=== PATIENT | male | born 1995 | race African-American/Black ===

== ENCOUNTER 2020-07-05 10:00 | Emergency (ER) | payer OTHER ==
[~2020-07-05] VITALS: Ht 175.3 cm; Wt 87.2 kg
[2020-07-05 10:11] VITALS: BP 130/49
[2020-07-05] MEDS ORDERED: TETRACAINE 0.5% OPHTH SOLUTION 4ML BOTTLE. OS ONE (10:15)
--- NOTE | 2020-07-05 10:45 | PHYS DOC ---
Past History Past Medical History: No Pertinent History Additional Past Surgical Histo: Chalazion removal to left eye Smoking: Non-smoker Alcohol Use: None Drug Use: None General Adult EDM: Chief Complaint: EYE PROBLEMS HPI: HPI: 24-year-old male presents with report of worsening vision to his left eye. Camilla ent reports initially was seen by Dr. Zazueta (ophthalmology) on 06/20/2020 for removal of left upper eyelid chalazion. Patient reports they removed the to lazy and and some "scar tissue ". And injected some steroid. Patient reports he was started on oral antibiotic. Patient reports he has noticed some slight blurry vision. Reports he has started to use a mask that heats up in the microwave that he places to "draw any excess oils out "to prevent a further chalazion. Patient reports he has been waking up with some blurry vision which then resolves quickly. Patient reports over the last 2 days his vision has not been returning. Reports some improvement later in the afternoon but not returning to his normal vision despite use of his glasses. Denies contact use. Denies trauma. Reports some sensation of "pressure behind his eye". Denies headache. Review of Systems: Review of Systems: Constitutional: Denies fever or chills Eyes: Denies redness; reports vision loss in left eye and mild sensation of pressure behind his eye HENT: Denies nasal congestion or sore throat Respiratory: Denies cough or shortness of breath Cardiovascular: Denies chest pain or palpitations GI: Denies abdominal pain, nausea, or vomiting : Denies dysuria or hematuria Musculoskeletal: Denies back pain or joint pain Integument: Denies rash or skin lesions Neurologic: Denies headache, focal weakness or sensory changes Complete systems were reviewed and found to be within normal limits, except as documented in this note. Current Medications: Current Meds: Current Medications Medications (Trade) Dose Ordered Sig/Ashish Start Time Stop Time Status Last Admin Dose Admin Tetracaine HCl (Tetracaine) 2 drop 1X ONCE 07/05/20 10:15 07/05/20 10:20 DC Allergies: Allergies: Allergies Coded Allergies Type Severity Reaction Last Updated Verified No Known Drug Allergies 07/05/20 No Physical Exam: PE: Constitutional: Well developed, well nourished, no acute distress, non-toxic appearance HENT: Normocephalic, atraumatic Eyes: PERRL, EOMI, conjunctiva normal, no discharge, small chalazion to left upper eyelid, red reflex visiable, left IOP 24, 24, 29, visual acuities: R 20/40 L 20/200 Neck: Normal range of motion, no tenderness, supple Lungs & Thorax: No respiratory distress, equal chest rise and fall Skin: Warm, dry, no erythema, no rash Extremities: ROM intact, moves all extremities without difficulty Neurologic: Alert and oriented X 3, no focal deficits noted Psychologic: Affect normal, judgment normal Current Patient Data: Vital Signs: Vital Signs Date Time Temp Pulse Resp B/P (MAP) Pulse Ox O2 Delivery O2 Flow Rate FiO2 07/05/20 10:11 65 18 130/49 (76) 97 EKG: EKG: [] Radiology/Procedures: Radiology/Procedures: [] Heart Score: C/O Chest Pain: N/A Course & Med Decision Making: Course & Med Decision Making Patient presents with acute visual changes. Visual acuities noted patient 20/40 on right and 20/200 on left without use of his glasses. Intraocular pressures 24, 24, 29 to left eye. Pupil is equal and reactive. Extraocular movements are intact. Patient does have history of recent chalazion surgery with ophthalmology. Discussed case with Dr. Zazueta (ophthalmology) who will be able to see patient at 1300 today in the office. Patient stable for discharge with close outpatient follow-up with ophthalmology at 1300 today. Discussed findings and plan with patient, who acknowledges understanding and agreement. Nicole Disclaimer: Nicole Disclaimer: This electronic medical record was generated, in whole or in part, using a voice recognition dictation system. Departure Departure: Impression: Primary Impression: Change in vision Disposition: 01 HOME / SELF CARE / HOMELESS Condition: STABLE Referrals: MARIO ALBERTO MACIAS DO (PCP) PAULO ZAZUETA DO Patient Instructions: Eye - Blurred Vision Additional Instructions: Present to be seen by Dr. Zazueta (ophthalmology) at 1300 to be further evaluated and treated for your vision change. ANIYA MAGALLANES DO July 05, 2020 10:45
== END 2020-07-05 10:50 | disposition home or self-care (01) ==
LOC: ER 10:00
DX: H53.8 Other visual disturbances (principal); H00.14 Chalazion left upper eyelid
CPT/HCPCS: 99282

== ENCOUNTER 2020-11-22 08:11 | Emergency (ER) | payer OTHER ==
[~2020-11-22] VITALS: Ht 175.3 cm; Wt 87.2 kg
--- NOTE | 2020-11-22 08:44 | PHYS DOC ---
Past History Past Medical History: No Pertinent History Past Surgical History: Other Additional Past Surgical Histo: Chalazion removal to left eye Smoking: Non-smoker Alcohol Use: None Drug Use: None General Adult EDM: Chief Complaint: SYNCOPE HPI: HPI: 25-year-old male presents via EMS with report of syncopal episode which occurred when he was walking into work. Patient reports he has been "exhausted from work "and has not been eating and drinking like he is supposed to. Patient does report some depression but denies suicidal ideation. Denies head trauma or neck pain. Denies fever or chills. Denies known exposure to COVID-19. Patient reports he was vaccinated for COVID-19 with Moderna x 2 doses. Review of Systems: Review of Systems: Constitutional: Denies fever or chills Eyes: Denies redness or eye pain HENT: Denies nasal congestion or sore throat Respiratory: Denies cough or shortness of breath Cardiovascular: Denies chest pain or palpitations GI: Denies abdominal pain, nausea, or vomiting : Denies dysuria or hematuria Musculoskeletal: Denies back pain or joint pain Integument: Denies rash or skin lesions Neurologic: Denies headache, focal weakness or sensory changes; reports syncope Complete systems were reviewed and found to be within normal limits, except as documented in this note. Current Medications: Current Meds: Current Medications Medications (Trade) Dose Ordered Sig/Ashish Start Time Stop Time Status Last Admin Dose Admin Sodium Chloride 1,000 ml @ 1,000 mls/hr 1X ONCE 11/22/20 08:45 11/22/20 09:44 UNV Allergies: Allergies: Allergies Coded Allergies Type Severity Reaction Last Updated Verified No Known Drug Allergies 07/05/20 No Physical Exam: PE: Constitutional: Well developed, well nourished, no acute distress, non-toxic appearance HENT: Normocephalic, atraumatic Eyes: PERRL, EOMI, conjunctiva normal, no discharge, no nystagmus Neck: Normal range of motion, no tenderness, supple Lungs & Thorax: No respiratory distress, equal chest rise and fall Abdomen: Soft, no tenderness Skin: Warm, dry, no erythema, no rash Extremities: No tenderness, ROM intact, no edema Neurologic: Alert and oriented X 3, normal motor function, normal sensory function, no focal deficits noted Psychologic: Affect normal, judgment normal Current Patient Data: Vital Signs: Vital Signs Date Time Temp Pulse Resp B/P (MAP) Pulse Ox O2 Delivery O2 Flow Rate FiO2 11/22/20 08:25 97.2 52 16 144/60 (88) 98 EKG: EKG: @0837 Sinus bradycardia at 53bpm, incomplete RBBB, QRS 94ms, QT/QTc 404/381ms, t wave inversion III Radiology/Procedures: Radiology/Procedures: [] Heart Score: C/O Chest Pain: N/A Course & Med Decision Making: Course & Med Decision Making Pertinent Lab studies reviewed. (See chart for details) Patient presents via EMS with report of syncopal episode upon getting to work today. Patient is neurologically intact. Denies any head trauma or neck pain. EKG stable. Labs obtained and posted to chart. IV fluid hydration given. Orthostatic vital signs stable. Patient stable for discharge with outpatient follow-up with PCP. Discussed findings and plan with patient, who acknowledges understanding and agreement. Nicole Disclaimer: Nicole Disclaimer: This electronic medical record was generated, in whole or in part, using a voice recognition dictation system. Departure Departure: Impression: Primary Impression: Syncope Qualified Codes: R55 - Syncope and collapse Disposition: HOME / SELF CARE / HOMELESS Condition: STABLE Referrals: MARIO ALBERTO MACIAS DO (PCP) Patient Instructions: Syncope, [id number] Additional Instructions: Increase fluid hydration. Follow closely with your doctor. ANIYA MAGALLANES DO Nov 22, 2020 08:44
[2020-11-22] MEDS ORDERED: IV NORMAL SALINE 1,000ML 1,000 ML IV ONE (08:45)
--- NOTE | 2020-11-22 08:45 | EKG ---
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
[2020-11-22 08:46] LABS: BASO % 1 % (0-3); EOS # 0.2 x10^3/uL (0.0-0.7); EOS % 5 % (0-3); HEMATOCRIT 46.1 % (39.0-53.0); HEMOGLOBIN 14.9 g/dL (13.0-17.5); LYMPH # 1.9 x10^3/uL (1.0-4.8); LYMPH % 42 % (24-48); MEAN CORPUSCULAR HEMOGLOBIN 27 pg (25-35); MEAN CORPUSCULAR HGB CONC 32 g/dL (31-37); MEAN CORPUSCULAR VOLUME 83 fL (79-100); MONO # 0.4 x10^3/uL (0.0-1.1); MONO % 9 % (0-9); NEUT % 43 % (31-73); PLATELET COUNT 220 x10^3/uL (140-400); RED BLOOD COUNT 5.58 x10^6/uL (4.30-5.70); RED CELL DISTRIBUTION WIDTH 13.2 % (11.5-14.5); WHITE BLOOD COUNT 4.5 x10^3/uL (4.0-11.0)
[2020-11-22 08:53] LABS: CALCIUM 9.5 mg/dL (8.5-10.1); GFR 111.1; POTASSIUM 4.2 mmol/L (3.5-5.1)
[2020-11-22 09:09] LABS: ALBUMIN/GLOBULIN RATIO 1.1 (1.0-1.7); MAGNESIUM 1.9 mg/dL (1.8-2.4); TOTAL BILIRUBIN 0.4 mg/dL (0.2-1.0); TOTAL PROTEIN 7.5 g/dL (6.4-8.2)
[2020-11-22 10:20] LABS: BACTERIA,URINE 0 /HPF (0-FEW); BILIRUBIN,URINE NEG (NEG); CLARITY,URINE CLEAR; COLOR,URINE YELLOW; GLUCOSE,URINE NEG (NEG); NITRITE,URINE NEG (NEG); RBC,URINE 0 /HPF (0-2); WBC,URINE 0 /HPF (0-4)
[2020-11-22 10:51] VITALS: BP 137/66
== END 2020-11-22 10:59 | disposition home or self-care (01) ==
LOC: ER 08:11
DX: R55 Syncope and collapse (principal); F32.9 Major depressive disorder, single episode, unspecified
CPT/HCPCS: 36415; 80053; 81001; 82553; 83735; 84484; 85025; 93005; 96360; 96361; 99284; J7030

== ENCOUNTER 2020-11-24 14:38 | Emergency (ER) | payer OTHER ==
[~2020-11-24] VITALS: Ht 175.3 cm; Wt 89.5 kg
--- NOTE | 2020-11-24 14:55 | PHYS DOC ---
Past History Past Medical History: No Pertinent History Past Surgical History: Other Additional Past Surgical Histo: Chalazion removal to left eye Smoking: Non-smoker Alcohol Use: None Drug Use: None General Adult EDM: Chief Complaint: CHEST PAIN HPI: HPI: 25-year-old male presents with chest pain. He describes it as a chest heaviness. Is been there for 2 days. He rates it a 4 out of 10. He does not have any shortness of breath or diaphoresis. No history of heart disease. Patient admits that he has been stressed out lately and his job. He denies fever or chills. He has no other specific complaints at this time. Review of Systems: Review of Systems: Constitutional: Denies fever or chills Eyes: Denies change in visual acuity HENT: Denies nasal congestion or sore throat Respiratory: Denies cough or shortness of breath Cardiovascular: Chest pain GI: Denies abdominal pain, nausea, vomiting, bloody stools or diarrhea : Denies dysuria Musculoskeletal: Denies back pain or joint pain Integument: Denies rash Neurologic: Denies headache, focal weakness or sensory changes Endocrine: Denies polyuria or polydipsia Lymphatic: Denies swollen glands Psychiatric: Denies depression or anxiety Allergies: Allergies: Allergies Coded Allergies Type Severity Reaction Last Updated Verified No Known Drug Allergies 07/05/20 No Physical Exam: PE: Constitutional: Well developed, well nourished, no acute distress, non-toxic appearance. [] HENT: Normocephalic, atraumatic, bilateral external ears normal, oropharynx moist, no oral exudates, nose normal. [] Eyes: PERRLA, EOMI, conjunctiva normal, no discharge. [] Neck: Normal range of motion, no tenderness, supple, no stridor. [] Cardiovascular: Heart rate regular rhythm, no murmur [] Lungs & Thorax: Bilateral breath sounds clear to auscultation [] Abdomen: Bowel sounds normal, soft, no tenderness, no masses, no pulsatile masses. [] Skin: Warm, dry, no erythema, no rash. [] Back: No tenderness, no CVA tenderness. [] Extremities: No tenderness, no cyanosis, no clubbing, ROM intact, no edema. [] Neurologic: Alert and oriented X 3, normal motor function, normal sensory function, no focal deficits noted. [] Psychologic: Affect normal, judgement normal, mood normal. [] Current Patient Data: Vital Signs: Vital Signs Date Time Temp Pulse Resp B/P (MAP) Pulse Ox O2 Delivery O2 Flow Rate FiO2 11/24/20 14:42 98.4 61 16 152/63 (92) 100 Room Air EKG: EKG: Sinus rhythm, rate 62, normal axis, no ST elevations or depressions. [] Radiology/Procedures: Radiology/Procedures: [] Impressions: EXAM: Chest, single view. HISTORY: Chest pain. COMPARISON: None. FINDINGS: A frontal view of the chest is obtained. There is no infiltrate, pleural effusion or pneumothorax. The heart is normal in size. IMPRESSION: No acute pulmonary finding. Electronically signed by: María Lemon MD (11/24/2020 2:57 PM) [id number] DICTATED AND SIGNED BY: MARÍA LEMON MD DATE: 11/24/20 1457 CC: DENIS GONZALEZ DO; MARIO ALBERTO MACIAS DO ~MTH0 0 Heart Score: C/O Chest Pain: Yes HEART Score for Chest Pain: HEART Score for Chest Pain Response (Comments) Value History Slighlty/Non-Suspicious 0 ECG Normal 0 Age < 45 0 Risk Factors No Risk Factors 0 Troponin < Normal Limit 0 Total 0 Risk Factors: Risk Factors: DM, Current or recent (<one month) smoker, HTN, HLP, family history of CAD, obesity. Risk Scores: Score 0 - 3: 2.5% MACE over next 6 weeks - Discharge Home Score 4 - 6: 20.3% MACE over next 6 weeks - Admit for Clinical Observation Score 7 - 10: 72.7% MACE over next 6 weeks - Early Invasive Strategies Course & Med Decision Making: Course & Med Decision Making Pertinent Labs and Imaging studies reviewed. (See chart for details) Patient's EKG is unremarkable. His labs are unremarkable. His troponin is negative. His chest x-ray is unremarkable. Her drug screen is negative. She is stable for discharge at this time. [] Dragon Disclaimer: Dragon Disclaimer: This electronic medical record was generated, in whole or in part, using a voice recognition dictation system. Departure Departure: Impression: Primary Impression: Chest pain Qualified Codes: R07.9 - Chest pain, unspecified Disposition: HOME / SELF CARE / HOMELESS Condition: STABLE Referrals: MARIO ALBERTO MACIAS DO (PCP) Patient Instructions: Chest Pain (Nonspecific), [id number] DENIS GONZALEZ DO Nov 24, 2020 14:55
--- NOTE | 2020-11-24 15:00 | RAD ---
EXAM: Chest, single view. HISTORY: Chest pain. COMPARISON: None. FINDINGS: A frontal view of the chest is obtained. There is no infiltrate, pleural effusion or pneumo thorax. The heart is normal in size. IMPRESSION: No acute pulmonary finding. Electronically signed by: María Lemon MD (11/24/2020 2:57 PM) [id number]
[2020-11-24 15:16] LABS: BASO % 1 % (0-3); EOS # 0.2 x10^3/uL (0.0-0.7); EOS % 5 % (0-3); HEMATOCRIT 45.1 % (39.0-53.0); HEMOGLOBIN 14.5 g/dL (13.0-17.5); LYMPH # 1.9 x10^3/uL (1.0-4.8); LYMPH % 44 % (24-48); MEAN CORPUSCULAR HEMOGLOBIN 27 pg (25-35); MEAN CORPUSCULAR HGB CONC 32 g/dL (31-37); MEAN CORPUSCULAR VOLUME 83 fL (79-100); MONO # 0.4 x10^3/uL (0.0-1.1); MONO % 9 % (0-9); NEUT # 1.8 x10^3uL (1.8-7.7); NEUT % 41 % (31-73); PLATELET COUNT 223 x10^3/uL (140-400); RED BLOOD COUNT 5.47 x10^6/uL (4.30-5.70); RED CELL DISTRIBUTION WIDTH 13.4 % (11.5-14.5); WHITE BLOOD COUNT 4.3 x10^3/uL (4.0-11.0)
[2020-11-24 15:19] LABS: CALCIUM 9.6 mg/dL (8.5-10.1); CREATININE 1.1 mg/dL (0.7-1.3); GFR 99.5
[2020-11-24 15:24] LABS: ALBUMIN 4.2 g/dL (3.4-5.0); ALBUMIN/GLOBULIN RATIO 1.1 (1.0-1.7); TOTAL BILIRUBIN 0.3 mg/dL (0.2-1.0); TOTAL PROTEIN 7.9 g/dL (6.4-8.2)
--- NOTE | 2020-11-24 15:39 | EKG ---
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
[2020-11-24 16:15] LABS: AMPHETAMINE/METHAMPHETAMINE NEG (NEG); BARBITURATES NEG (NEG); BENZODIAZEPINES NEG (NEG); CANNABINOIDS NEG (NEG); COCAINE NEG (NEG); METHADONE NEG (NEG); OPIATES NEG (NEG); PHENCYCLIDINE NEG (NEG)
[2020-11-24 16:28] VITALS: BP 132/70
== END 2020-11-24 17:09 | disposition home or self-care (01) ==
LOC: ER 14:38
DX: R07.89 Other chest pain (principal)
CPT/HCPCS: 36415; 71045; 80053; 80307; 84484; 85025; 93005; 99285-25